=== PATIENT | female | born 1965 | race Caucasian/White ===

== ENCOUNTER 2017-06-28 10:19 | Emergency (ER) | payer MEDICARE ==
[~2017-06-28] VITALS: Ht 167.6 cm; Wt 87.0 kg
[2017-06-28 10:21] VITALS: BP 133/83; PULSE 107; RESP 17; TEMP 99; O2SAT 94
--- NOTE | 2017-06-28 10:39 | PD ---
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 Patient says she had a aortofemoral bypass done 2 months ago from [facility]. Subsequently she had postoperative infection developed which was taken care at a local hospital where she lives which is in [facility]. Today she started developing pain again and noticed that a piece of metal came out from the left femoral wound. Patient called her surgeon's office at [facility] [place] her to come here to see Dr. Pina. Vital signs are stable. [facility] Past Medical History Narrative Medical List of her past medical, surgical, social and family history is reviewed from the nursing note. Cardiovascular Problems: Yes ?: Not Past Surgical History Cardiac Surgery: Yes Hysterectomy: Yes Social History Tobacco Use: Yes Allergies-Medications (Allergen,Severity, Reaction): Coded Allergies: penicillin G (Verified Adverse Reaction, Severe, rash, 06/28/17) varenicline (Verified Adverse Reaction, Severe, rash, 06/28/17) Comments List of her allergies reviewed from the nursing note. Reported Meds & Prescriptions Reported Meds & Active Scripts Active Reported Coreg (Carvedilol) 25 Mg Tab 25 Mg PO BID Klonopin (Clonazepam) 2 Mg Tab 2 Mg PO TID Restoril (Temazepam) 30 Mg Cap 30 Mg PO HS Oxycontin (Oxycodone HCl) 30 Mg Tab 30 Mg PO Q4HR Morphine ER (Morphine Sulfate) 60 Mg Tab 60 Mg PO Q8H Phenergan (Promethazine HCl) 25 Mg Tablet 25 Mg PO Q6H PRN Plavix (Clopidogrel Bisulfate) 75 Mg Tab 75 Mg PO BID Protonix (Pantoprazole Sodium) 40 Mg Tab 40 Mg PO DAILY Lipitor (Atorvastatin Calcium) 20 Mg Tab 20 Mg PO HS Lyrica (Pregabalin) 100 Mg Cap 100 Mg PO BID Effexor XR 24 HR (Venlafaxine HCl) 150 Mg Cap 150 Mg PO DAILY Colace (Docusate Sodium) 100 Mg Capsule 100 Mg PO BID Narrative Medication List of her home medications reviewed from the nursing note. Review of Systems Except as stated in HPI: all other systems reviewed are Neg Physical Exam Narrative GENERAL: Awake, alert, mild distress SKIN: Focused skin assessment warm/dry. Postsurgical wound appears to be healing well on the abdominal as well as the femoral area. There is some scarring and keloid formation. No discharge is noticed. No redness of the surrounding skin is noticed HEAD: Atraumatic. Normocephalic. EYES: Pupils equal and round. No scleral icterus. No injection or drainage. ENT: No nasal bleeding or discharge. Mucous membranes pink and moist. NECK: Trachea midline. No JVD. CARDIOVASCULAR: Regular rate and rhythm. No murmur appreciated. RESPIRATORY: No accessory muscle use. Clear to auscultation. Breath sounds equal bilaterally. GASTROINTESTINAL: Abdomen soft, non-tender, nondistended. Hepatic and splenic margins not palpable. MUSCULOSKELETAL: No obvious deformities. No clubbing. No cyanosis. No edema. NEUROLOGICAL: Awake and alert. No obvious cranial nerve deficits. Motor grossly within normal limits. Normal speech. PSYCHIATRIC: Appropriate mood and affect; insight and judgment normal. Data Data Last Documented VS Orders Orders Basic Metabolic Panel (Bmp) (06/28/17 10:44) Complete Blood Count With Diff (06/28/17 10:44) Blood Culture (06/28/17 10:44) C-Reactive Protein (Crp) (06/28/17 10:44) Ed Discharge Order (06/28/17 12:54) Electrocardiogram (06/28/17 10:37) Labs Laboratory Tests Test 06/28/17 11:30 White Blood Count 7.7 TH/MM3 Red Blood Count 5.18 MIL/MM3 Hemoglobin 12.5 GM/DL Hematocrit 38.8 % Mean Corpuscular Volume 74.9 FL Mean Corpuscular Hemoglobin 24.1 PG Mean Corpuscular Hemoglobin Concent 32.1 % Red Cell Distribution Width 18.3 % Platelet Count 247 TH/MM3 Mean Platelet Volume 7.5 FL Neutrophils (%) (Auto) 78.3 % Lymphocytes (%) (Auto) 16.3 % Monocytes (%) (Auto) 3.9 % Eosinophils (%) (Auto) 1.0 % Basophils (%) (Auto) 0.5 % Neutrophils # (Auto) 6.0 TH/MM3 Lymphocytes # (Auto) 1.3 TH/MM3 Monocytes # (Auto) 0.3 TH/MM3 Eosinophils # (Auto) 0.1 TH/MM3 Basophils # (Auto) 0.0 TH/MM3 CBC Comment DIFF FINAL Differential Comment Blood Urea Nitrogen 7 MG/DL Creatinine 0.89 MG/DL Random Glucose 110 MG/DL Calcium Level 8.9 MG/DL Sodium Level 136 MEQ/L Potassium Level 4.1 MEQ/L Chloride Level 102 MEQ/L Carbon Dioxide Level 26.2 MEQ/L Anion Gap 8 MEQ/L Estimat Glomerular Filtration Rate 66 ML/MIN C-Reactive Protein 0.96 MG/DL MDM Medical Decision Making Medical Screen Exam Complete: Yes Emergency Medical Condition: Yes Medical Record Reviewed: Yes Interpretation(s) Twelve-lead EKG was reviewed by me. Normal sinus rhythm, normal axis, nonspecific ST-T wave changes. Heart rate of 94 bpm. Differential Diagnosis Chronic pain, postoperative pain Narrative Course 12:57 PM I discussed the case with Dr. Pina who is on-call for vascular surgery. His PA and later on himself came down to see the patient. They agreed that the wound looks good and healing well. They did not appreciate any severe infection. They were comfortable discharging the patient home. Her blood test results came back and appeared to be within acceptable range. I'll discharge her home. As per her discharge paper from [facility] they have mentioned that she has opiate dependence issues. Procedures EKG Prior to Arrival: No Diagnosis Primary Impression: Postoperative pain Additional Impression: Chronic pain disorder Referrals: Brennan Pina MD Primary Care Physician Additional Instructions: Please follow-up with the surgeon who operated for you can follow-up with Dr. Pina. His number and office address has been provided on this discharge paper. Disposition: 01 DISCHARGE HOME Condition: Stable Demarcus Santiago MD Jun 28, 2017 10:39
[2017-06-28] MEDS ORDERED: LIPI20TA PO (11:47)
[2017-06-28] MEDS ORDERED: PLAV75TA29 PO (11:47)
[2017-06-28] MEDS ORDERED: KLON2TAB PO (11:47)
[2017-06-28] MEDS ORDERED: PROM25TA10 PO (11:47)
[2017-06-28] MEDS ORDERED: EFFE150C PO (11:47)
[2017-06-28] MEDS ORDERED: CORE25TA PO (11:47)
[2017-06-28] MEDS ORDERED: OXYC30TA62 PO (11:47)
[2017-06-28] MEDS ORDERED: PROT40TA PO (11:47)
[2017-06-28] MEDS ORDERED: COLA100C5 PO (11:47)
[2017-06-28] MEDS ORDERED: MORP1TAB26 PO (11:47)
[2017-06-28] MEDS ORDERED: LYRI100C PO (11:47)
[2017-06-28] MEDS ORDERED: REST30CA PO (11:47)
[2017-06-28 12:15] LABS: BASOPHIL % 0.5 % (0.0-2.0); EOSINOPHIL # 0.1 TH/MM3 (0-0.4); HEMATOCRIT 38.8 % (35.0-46.0); HEMO FLAGS DIFF FINAL; LYMPH % 16.3 % (9.0-44.0); LYMPHOCYTE # 1.3 TH/MM3 (1.0-4.8); MEAN CELL VOLUME 74.9 FL (80.0-100.0); MEAN CORPUSCULAR HEMOGLOBIN 24.1 PG (27.0-34.0); MEAN CORPUSCULAR HGB CONC 32.1 % (32.0-36.0); MONO % 3.9 % (0.0-8.0); NEUT % 78.3 % (16.0-70.0); PLATELET COUNT 247 TH/MM3 (150-450); RED BLOOD COUNT 5.18 MIL/MM3 (4.00-5.30); RED CELL DISTRIBUTION WIDTH 18.3 % (11.6-17.2); WHITE BLOOD COUNT 7.7 TH/MM3 (4.0-11.0)
[2017-06-28 12:36] LABS: BICARBONATE 26.2 MEQ/L (21.0-32.0); POTASSIUM 4.1 MEQ/L (3.5-5.1)
--- NOTE | 2017-06-28 12:44 | PD.VS.CON ---
History of Present Illness Chief Complaint: groin wound infection Consult Requested by: ED History of Present Illness 52 yo female who had aorto-fem, fem-fem in Mar at [facility] with a couple of days of B groin pain and drainage according to the patient. Past/Family/Social History Past Medical History PAD anxiety CAD COPD DVT depression HTN GERD hypercoagulable state DM Past Surgical History 03/22/17: aorto-L CHEF BROILER OR FRY, L-R fem-fem with R groin reconstruction (d/c POD#7) multiple B LE interventions with embolectomies Social History + tobacco, disabled Family History [place] Home Medications Reported Medications Carvedilol (Coreg) 25 Mg Tab, 25 MG PO BID, #60 TAB 0 Refills 06/28/17 Clonazepam (Klonopin) 2 Mg Tab, 2 MG PO TID, #90 TAB 0 Refills 06/28/17 Temazepam (Restoril) 30 Mg Cap, 30 MG PO HS for Insomnia, #30 CAP 0 Refills 06/28/17 Oxycodone ER (Oxycontin) 30 Mg Tab, 30 MG PO Q4HR for Pain Management, TAB 0 Refills 06/28/17 Morphine ER (Morphine ER) 60 Mg Tab, 60 MG PO Q8H for Pain Management, TAB 0 Refills 06/28/17 Promethazine (Phenergan) 25 Mg Tablet, 25 MG PO Q6H Y for NAUSEA OR VOMITING, TAB 0 Refills 06/28/17 Clopidogrel (Plavix) 75 Mg Tab, 75 MG PO BID for Blood Clot Prevention, #60 TAB 0 Refills 06/28/17 Pantoprazole (Protonix) 40 Mg Tab, 40 MG PO DAILY for Reflux, #30 TAB 0 Refills 06/28/17 Atorvastatin (Lipitor) 20 Mg Tab, 20 MG PO HS for Cholesterol Management, #30 TAB 0 Refills 06/28/17 Pregabalin (Lyrica) 100 Mg Cap, 100 MG PO BID for Pain Management, #60 CAP 0 Refills 06/28/17 Venlafaxine ER 24 HR (Effexor XR 24 HR) 150 Mg Cap, 150 MG PO DAILY, #30 CAP 0 Refills 06/28/17 Docusate Sodium (Colace) 100 Mg Capsule, 100 MG PO BID for Constipation 06/28/17 Coded Allergies: penicillin G (Verified Adverse Reaction, Severe, rash, 06/28/17) varenicline (Verified Adverse Reaction, Severe, rash, 06/28/17) Review of Systems Respiratory: COMPLAINS OF: Cough Cardiovascular: COMPLAINS OF: Lower Extremity Edema, DENIES: Chest pain Physical Exam Vitals/I&O Date Time Temp Pulse Resp B/P (MAP) Pulse Ox O2 Delivery O2 Flow Rate FiO2 06/28/17 10:21 99.0 107 17 133/83 (100) 94 Room Air Neuro: alert, no distress HEENT: NC/AT; anicteric sclera Neck: no JVD Heart: reg rate, no M Lungs: clear B Abdomen: midline incision well healed Vascular: B groins well healed, no drainage and no erythema Extremities: no C/C/E modest edema neuro intact Laboratory Tests Test 06/28/17 11:30 White Blood Count 7.7 Red Blood Count 5.18 Hemoglobin 12.5 Hematocrit 38.8 Mean Corpuscular Volume 74.9 Mean Corpuscular Hemoglobin 24.1 Mean Corpuscular Hemoglobin Concent 32.1 Red Cell Distribution Width 18.3 Platelet Count 247 Mean Platelet Volume 7.5 Neutrophils (%) (Auto) 78.3 Lymphocytes (%) (Auto) 16.3 Monocytes (%) (Auto) 3.9 Eosinophils (%) (Auto) 1.0 Basophils (%) (Auto) 0.5 Neutrophils # (Auto) 6.0 Lymphocytes # (Auto) 1.3 Monocytes # (Auto) 0.3 Eosinophils # (Auto) 0.1 Basophils # (Auto) 0.0 CBC Comment DIFF FINAL Differential Comment Blood Urea Nitrogen 7 Creatinine 0.89 Random Glucose 110 Calcium Level 8.9 Sodium Level 136 Potassium Level 4.1 Chloride Level 102 Carbon Dioxide Level 26.2 Anion Gap 8 Estimat Glomerular Filtration Rate 66 C-Reactive Protein 0.96 Date/Time Source Procedure Growth Status 06/28/17 11:30 Blood Peripheral Aerobic Blood Culture Pending Received 06/28/17 11:30 Blood Peripheral Anaerobic Blood Culture Pending Received Assessment and Plan Plan no evidence of infection. Wounds look great. Needs q6m CHERELLE which I offered to do here if she did not want to travel to [place] Brennan Pina MD FACS RPVI transfusion aide [facility] [phone] Brennan Pina MD Jun 28, 2017 12:44
[2017-06-28 13:52] VITALS: BP 147/64
--- NOTE | 2017-06-28 14:47 | EKG ---
Date Performed: 06/28/2017 Time Performed: 10:37:45 PTAGE: 52 years EKG: Sinus rhythm NORMAL ECG NO PREVIOUS TRACING DOCTOR: Oni Whitten Interpretating Date/Time 06/28/2017 14:46:16
== END 2017-06-28 13:54 | disposition home or self-care (01) ==
LOC: NEPC 10:19
DX: G89.18 Other acute postprocedural pain (principal); G89.29 Other chronic pain
CPT/HCPCS: 80048; 85025; 86140; 87040; 93005; 99285